=== PATIENT | male | born 1930 | race Caucasian/White ===

== ENCOUNTER 2018-05-16 17:06 | Inpatient (IN) | payer MEDICARE, OTHER ==
[~2018-05-16] VITALS: Ht 160 cm; Wt 58.5 kg
[~2018-05-16 17:06] MED LIST: AMOX1TAB64 PO; CEFD300C37 PO; CLIN300C8 PO; COUMADIN PO; DIGO125T81 PO; DOXY100T PO; DULO60CA7 PO; FINA5TAB4 PO; FURO-93 PO; FURO20TA3 PO; GABA600T PO; LEVO50TA5 PO; LISI-167 PO; METH4TAB2 PO; METH500T97 PO; METO50TA82 PO; METOPROLOL PO; PANT40TA5 PO; POTA10TA11 PO; POTA10TA31 PO; PRED20TA PO; SULF1TAB24; TAMS-11 PO; [UNRECOGNIZED DRUG - CODE]
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
[2018-05-16] MEDS ORDERED: HYDROmorphone 1 MG/ML, 1ML ONE (17:26)
[2018-05-16] MEDS ORDERED: HYDROmorphone 1 MG/ML, 1ML IVPush PRN (17:30)
[2018-05-16] MEDS ORDERED: SODIUM CHLORIDE FLUSH 10ML SYR IVF ONE (17:30)
--- NOTE | 2018-05-16 17:30 | NUR ---
pt to XR
[2018-05-16] MEDS ORDERED: ASPI-496 PO (17:44)
[2018-05-16] MEDS ORDERED: ACET325T14 PO (17:44)
[2018-05-16] MEDS ORDERED: SPIR25TA5 PO (17:44)
[2018-05-16] MEDS ORDERED: LEVO100T5 PO (17:44)
[2018-05-16] MEDS ORDERED: OMEP20TA62 PO (17:44)
[2018-05-16] MEDS ORDERED: CHOL200024 PO (17:44)
--- NOTE | 2018-05-16 17:48 | NUR ---
pt returned from XR
--- NOTE | 2018-05-16 18:02 | NUR ---
pt laying on gurney awake & more comfortable after pain med, COMANCHE but responds approp to staff, NAD, family at BS, comfort measures provided, call light within reach.
[2018-05-16 18:16] LABS: INTERNATIONAL NORMALIZED RATIO 1.07 (0.93-1.1); PROTHROMBIN TIME 11.3 Seconds (9.6-11.5)
[2018-05-16 18:19] LABS: ALANINE AMINOTRANSFERASE 18 U/L (12-78); ALBUMIN 3.7 g/dL (3.4-5.0); ANION GAP 5 mmol/L (5-15); CALCIUM 8.9 mg/dL (8.5-10.1); CHLORIDE 102 mmol/L (98-107)
[2018-05-16 18:22] LABS: ALKALINE PHOSPHATASE 84 U/L (45-117); BILIRUBIN,TOTAL 0.8 mg/dL (0.2-1.0); CREATININE 1.02 mg/dL (0.7-1.3); TOTAL PROTEIN 7.1 g/dL (6.4-8.2)
[2018-05-16 18:24] LABS: MEAN CORPUSCULAR HEMOGLOBIN 35.5 pg (27.5-34.5); MEAN CORPUSCULAR HGB CONC 33.1 g/dL (33.2-36.2); MEAN CORPUSCULAR VOLUME 107.3 fL (81-97); MEAN PLATELET VOLUME 9.9 fL (7.4-10.4); PLATELET COUNT 129 x10^3/uL (130-400); RED BLOOD COUNT 3.69 x10^6/uL (4.38-5.82); RED CELL DISTRIBUTION WIDTH 13.8 % (9.4-14.8)
[2018-05-16 18:25] LABS: BASOPHILS # (AUTO) 0.02 x10^3/uL (0-0.1); BASOPHILS % (AUTO) 0 % (0-1); EOSINOPHILS # (AUTO) 0.11 x10^3/uL (0-0.4); EOSINOPHILS % (AUTO) 2 % (1-7); LYMPHOCYTES # (AUTO) 1.45 x10^3/uL (1-3.4); LYMPHOCYTES % (AUTO) 18 % (22-44); MONOCYTES # (AUTO) 0.71 x10^3/uL (0.2-0.8); MONOCYTES % (AUTO) 9 % (2-9); NEUTROPHILS # (AUTO) 5.63 x10^3/uL (1.8-6.8); NEUTROPHILS % (AUTO) 71 % (42-75)
[2018-05-16 18:26] LABS: MD MORPH REVIEW ONLY
[2018-05-16 18:28] LABS: <PLATELET ESTIMATE> DECREASED; LARGE PLATELETS 1+
--- NOTE | 2018-05-16 18:59 | NUR ---
Pt to be admitted to med-surg, room 474. Report called to Patrizia Porter.
[2018-05-16 19:23] VITALS: BP 131/84
[2018-05-16] MEDS ORDERED: ONDANSETRON 2MG/ML, 2ML IVPush PRN (19:30)
[2018-05-16] MEDS ORDERED: BISACODYL 10 MG SUPP PR PRN (19:30)
[2018-05-16] MEDS ORDERED: HYDROmorphone 2 MG/ML, 1ML IVPush PRN (19:30)
[2018-05-16] MEDS ORDERED: POLYETHYLENE GLYCOL 17 GM PACKET PO PRN (19:30)
[2018-05-16] MEDS: LEVOTHYROXINE 100 MCG TABLET PO SCH (19:30)
[2018-05-16] MEDS ORDERED: METHOCARBAMOL 500 MG TABLET PO PRN (19:30)
[2018-05-16] MEDS ORDERED: ACETAMINOPHEN 325 MG TABLET PO PRN (19:30)
[2018-05-16] MEDS: DULOXETINE 30 MG CAPSULE.DR PO SCH (20:45)
[2018-05-16] MEDS: METHOCARBAMOL 500 MG TABLET PO SCH (20:45)
[2018-05-16] MEDS: AMPICILLIN/SULBACTAM 3 GM in SODIUM CHLORIDE 0.9% 100 ML IV SCH (20:45)
[2018-05-16] MEDS: GABAPENTIN 400 MG CAPSULE PO SCH (20:45)
[2018-05-16] MEDS: SODIUM CHLORIDE FLUSH 10ML SYR IVF SCH (20:46)
[2018-05-17 01:01] VITALS: BP 106/65
[2018-05-17] MEDS: AMPICILLIN/SULBACTAM 3 GM in SODIUM CHLORIDE 0.9% 100 ML IV SCH ×4 (01:30→20:30)
[2018-05-17 06:00] LABS: BASOPHILS # (AUTO) 0.08 x10^3/uL (0-0.1); BASOPHILS % (AUTO) 1 % (0-1); EOSINOPHILS % (AUTO) 0 % (1-7); LYMPHOCYTES # (AUTO) 0.94 x10^3/uL (1-3.4); LYMPHOCYTES % (AUTO) 9 % (22-44); MD NO; MEAN CORPUSCULAR HEMOGLOBIN 35.7 pg (27.5-34.5); MEAN CORPUSCULAR HGB CONC 33.8 g/dL (33.2-36.2); MEAN CORPUSCULAR VOLUME 105.5 fL (81-97); MEAN PLATELET VOLUME 10.1 fL (7.4-10.4); MONOCYTES # (AUTO) 0.95 x10^3/uL (0.2-0.8); MONOCYTES % (AUTO) 10 % (2-9); NEUTROPHILS # (AUTO) 8.05 x10^3/uL (1.8-6.8); NEUTROPHILS % (AUTO) 80 % (42-75); PLATELET COUNT 124 x10^3/uL (130-400); RED BLOOD COUNT 3.74 x10^6/uL (4.38-5.82); RED CELL DISTRIBUTION WIDTH 13.9 % (9.4-14.8)
[2018-05-17 06:13] LABS: CALCIUM 8.8 mg/dL (8.5-10.1); CHLORIDE 106 mmol/L (98-107)
[2018-05-17 06:19] LABS: ALANINE AMINOTRANSFERASE 15 U/L (12-78); ALBUMIN 3.6 g/dL (3.4-5.0); ALKALINE PHOSPHATASE 72 U/L (45-117); ANION GAP 7 mmol/L (5-15); BILIRUBIN,TOTAL 1.5 mg/dL (0.2-1.0); CREATININE 0.97 mg/dL (0.7-1.3)
[2018-05-17 07:29] VITALS: BP 100/65
[2018-05-17] MEDS: LEVOTHYROXINE 50 MCG TABLET PO SCH (07:30)
[2018-05-17] MEDS ORDERED: LEVOTHYROXINE 100 MCG TABLET ONE (07:59)
[2018-05-17] MEDS: POTASSIUM CHLORIDE 10 MEQ TABLET.ER PO SCH (09:00)
[2018-05-17] MEDS: SENNA/DOCUSATE TABLET PO SCH (09:00)
[2018-05-17] MEDS: FINASTERIDE 5 MG TABLET PO SCH (09:00)
[2018-05-17] MEDS: TAMSULOSIN 0.4 MG CAP.ER.24H PO SCH (09:00)
[2018-05-17] MEDS: METHOCARBAMOL 500 MG TABLET PO SCH ×2 (09:00→20:30)
[2018-05-17] MEDS ORDERED: SPIRONOLACTONE 25 MG TABLET PO SCH (09:00)
[2018-05-17] MEDS: CHOLECALCIFEROL 1,000 UNIT TABLET PO SCH (09:00)
[2018-05-17] MEDS: OMEPRAZOLE 20 MG CAPSULE.DR PO SCH (09:00)
[2018-05-17] MEDS: GABAPENTIN 400 MG CAPSULE PO SCH ×2 (09:00→20:30)
[2018-05-17] MEDS ORDERED: FUROSEMIDE 40 MG TABLET PO SCH (09:00)
[2018-05-17] MEDS: METOPROLOL TARTRATE 50 MG TABLET PO SCH (09:21)
[2018-05-17] MEDS: SODIUM CHLORIDE FLUSH 10ML SYR IVF SCH ×2 (09:22→20:30)
[2018-05-17] MEDS: ACETAMINOPHEN 500 MG TABLET PO SCH ×3 (10:26→22:30)
[2018-05-17] MEDS: ENOXAPARIN 40 MG/0.4 ML SQ SCH (15:01)
[2018-05-17 15:15] VITALS: BP 111/72
--- NOTE | 2018-05-17 16:43 | NUR ---
REC: Patient is not safe for po intake due to extremely high risk of aspiration; however, artificial means are not an option. Therefore, recommend pureed diet with NTL as most conservative method of po to reduce risk of aspiration. Addendum: 05/17/18 at 1655 by Marielle CONWAY Amended: Links added.
[2018-05-17 19:38] VITALS: BP 111/68
[2018-05-17] MEDS: DULOXETINE 30 MG CAPSULE.DR PO SCH (20:30)
[2018-05-18 00:32] VITALS: BP 117/80
[2018-05-18] MEDS: AMPICILLIN/SULBACTAM 3 GM in SODIUM CHLORIDE 0.9% 100 ML IV SCH ×4 (01:41→20:16)
[2018-05-18] MEDS: ACETAMINOPHEN 500 MG TABLET PO SCH ×5 (04:30→20:19)
[2018-05-18 05:33] LABS: ALBUMIN 3.1 g/dL (3.4-5.0); ANION GAP 8 mmol/L (5-15); CHLORIDE 106 mmol/L (98-107); MEAN CORPUSCULAR HEMOGLOBIN 35.4 pg (27.5-34.5); MEAN CORPUSCULAR HGB CONC 33.5 g/dL (33.2-36.2); MEAN CORPUSCULAR VOLUME 105.6 fL (81-97); RED BLOOD COUNT 3.67 x10^6/uL (4.38-5.82); RED CELL DISTRIBUTION WIDTH 13.6 % (9.4-14.8)
[2018-05-18 05:36] LABS: ALANINE AMINOTRANSFERASE 15 U/L (12-78); ALKALINE PHOSPHATASE 68 U/L (45-117); CREATININE 1.15 mg/dL (0.7-1.3); TOTAL PROTEIN 6.5 g/dL (6.4-8.2)
[2018-05-18 06:18] LABS: BASOPHILS # (AUTO) 0.02 x10^3/uL (0-0.1); BASOPHILS % (AUTO) 0 % (0-1); EOSINOPHILS % (AUTO) 0 % (1-7); LYMPHOCYTES # (AUTO) 0.86 x10^3/uL (1-3.4); LYMPHOCYTES % (AUTO) 7 % (22-44); MD SCAN; MEAN PLATELET VOLUME 10.4 fL (7.4-10.4); MONOCYTES # (AUTO) 0.64 x10^3/uL (0.2-0.8); MONOCYTES % (AUTO) 5 % (2-9); NEUTROPHILS # (AUTO) 10.84 x10^3/uL (1.8-6.8); NEUTROPHILS % (AUTO) 88 % (42-75); PLATELET COUNT 100 x10^3/uL (130-400)
[2018-05-18] MEDS ORDERED: LEVOTHYROXINE 25 MCG TABLET ONE (06:34)
[2018-05-18 07:05] VITALS: BP 99/63
[2018-05-18] MEDS: LEVOTHYROXINE 100 MCG TABLET PO SCH (08:22)
[2018-05-18] MEDS: FUROSEMIDE 20 MG TABLET PO SCH (08:23)
[2018-05-18] MEDS: METOPROLOL TARTRATE 50 MG TABLET PO SCH (08:24)
[2018-05-18] MEDS: FINASTERIDE 5 MG TABLET PO SCH (08:27)
[2018-05-18] MEDS: POTASSIUM CHLORIDE 10 MEQ TABLET.ER PO SCH (08:31)
[2018-05-18] MEDS: CHOLECALCIFEROL 1,000 UNIT TABLET PO SCH (08:33)
[2018-05-18] MEDS: SODIUM CHLORIDE FLUSH 10ML SYR IVF SCH ×2 (08:33→20:18)
[2018-05-18] MEDS: TAMSULOSIN 0.4 MG CAP.ER.24H PO SCH (08:34)
[2018-05-18] MEDS: GABAPENTIN 400 MG CAPSULE PO SCH ×2 (08:34→20:17)
[2018-05-18] MEDS: SENNA/DOCUSATE TABLET PO SCH (08:37)
[2018-05-18] MEDS: OMEPRAZOLE 20 MG CAPSULE.DR PO SCH (08:37)
[2018-05-18] MEDS: METHOCARBAMOL 500 MG TABLET PO SCH ×2 (08:37→20:17)
[2018-05-18 14:11] VITALS: BP 92/58
[2018-05-18] MEDS: ENOXAPARIN 40 MG/0.4 ML SQ SCH (15:36)
[2018-05-18 19:22] VITALS: BP 104/63
[2018-05-18] MEDS: METOPROLOL TARTRATE 25 MG TABLET PO SCH (20:17)
[2018-05-18] MEDS: DULOXETINE 30 MG CAPSULE.DR PO SCH (20:17)
[2018-05-18] MEDS: OXYcodone IR 5MG TABLET PO PRN (23:14)
[2018-05-19 01:12] VITALS: BP 107/70
[2018-05-19] MEDS: AMPICILLIN/SULBACTAM 3 GM in SODIUM CHLORIDE 0.9% 100 ML IV SCH ×3 (03:13→14:51)
[2018-05-19] MEDS: ACETAMINOPHEN 500 MG TABLET PO SCH ×4 (03:13→21:08)
[2018-05-19 05:50] LABS: ALANINE AMINOTRANSFERASE 12 U/L (12-78); ALBUMIN 2.5 g/dL (3.4-5.0); ANION GAP 6 mmol/L (5-15); CALCIUM 8.5 mg/dL (8.5-10.1); CHLORIDE 108 mmol/L (98-107); MEAN CORPUSCULAR HEMOGLOBIN 36.1 pg (27.5-34.5); MEAN CORPUSCULAR VOLUME 106.2 fL (81-97); RED BLOOD COUNT 3.17 x10^6/uL (4.38-5.82); RED CELL DISTRIBUTION WIDTH 13.6 % (9.4-14.8)
[2018-05-19 05:53] LABS: ALKALINE PHOSPHATASE 60 U/L (45-117); BILIRUBIN,TOTAL 1.4 mg/dL (0.2-1.0); CREATININE 0.86 mg/dL (0.7-1.3); TOTAL PROTEIN 5.7 g/dL (6.4-8.2)
[2018-05-19] MEDS ORDERED: LEVOTHYROXINE 25 MCG TABLET ONE ×2 (05:58→06:12)
[2018-05-19] MEDS: OXYcodone IR 5MG TABLET PO PRN (06:10)
[2018-05-19 06:21] LABS: MD SCAN
[2018-05-19] MEDS: LEVOTHYROXINE 100 MCG TABLET PO SCH (06:53)
[2018-05-19 07:32] VITALS: BP 101/71
[2018-05-19] MEDS: METHOCARBAMOL 500 MG TABLET PO SCH ×2 (08:41→21:08)
[2018-05-19] MEDS: FINASTERIDE 5 MG TABLET PO SCH (08:42)
[2018-05-19] MEDS: TAMSULOSIN 0.4 MG CAP.ER.24H PO SCH (08:44)
[2018-05-19] MEDS: GABAPENTIN 400 MG CAPSULE PO SCH ×2 (08:44→21:08)
[2018-05-19] MEDS: METOPROLOL TARTRATE 25 MG TABLET PO SCH ×2 (08:44→20:56)
[2018-05-19] MEDS: FUROSEMIDE 20 MG TABLET PO SCH (08:44)
[2018-05-19] MEDS: POTASSIUM CHLORIDE 10 MEQ TABLET.ER PO SCH (08:46)
[2018-05-19] MEDS: OMEPRAZOLE 20 MG CAPSULE.DR PO SCH (08:46)
[2018-05-19] MEDS: SENNA/DOCUSATE TABLET PO SCH ×2 (08:47→08:59)
[2018-05-19] MEDS: SODIUM CHLORIDE FLUSH 10ML SYR IVF SCH ×2 (08:47→21:13)
[2018-05-19] MEDS: CHOLECALCIFEROL 1,000 UNIT TABLET PO SCH ×2 (08:47→08:59)
[2018-05-19 10:43] LABS: LYMPHOCYTES % (AUTO) 10 % (22-44); MEAN PLATELET VOLUME 10.7 fL (7.4-10.4); NEUTROPHILS % (AUTO) 81 % (42-75); PLATELET COUNT 82 x10^3/uL (130-400)
[2018-05-19 10:44] LABS: BASOPHILS # (AUTO) 0.02 x10^3/uL (0-0.1); BASOPHILS % (AUTO) 0 % (0-1); EOSINOPHILS % (AUTO) 1 % (1-7); LYMPHOCYTES # (AUTO) 0.77 x10^3/uL (1-3.4); MONOCYTES # (AUTO) 0.61 x10^3/uL (0.2-0.8); MONOCYTES % (AUTO) 8 % (2-9); NEUTROPHILS # (AUTO) 6.37 x10^3/uL (1.8-6.8)
[2018-05-19 11:24] LABS: ABSOLUTE RETICS # 0.018 x10^6/uL (0.5-1.5); RED BLOOD COUNT 3.23 x10^6/uL (4.38-5.82); RETICULOCYTE COUNT % 0.56 % (0.5-1.5)
[2018-05-19] MEDS ORDERED: BISACODYL 10 MG SUPP PR ONE (11:30)
[2018-05-19] MEDS ORDERED: LACTULOSE 20 GM/30 ML UDC PO ONE (12:00)
[2018-05-19 13:21] VITALS: BP 101/69
[2018-05-19] MEDS: ENOXAPARIN 40 MG/0.4 ML SQ SCH (14:53)
[2018-05-19 19:23] VITALS: BP 103/67
[2018-05-19] MEDS: DULOXETINE 30 MG CAPSULE.DR PO SCH (21:08)
[2018-05-20] MEDS: ACETAMINOPHEN 500 MG TABLET PO SCH ×4 (02:15→22:35)
[2018-05-20 02:36] VITALS: BP 120/73
[2018-05-20] MEDS: OXYcodone IR 5MG TABLET PO PRN (05:07)
[2018-05-20] MEDS: LEVOTHYROXINE 50 MCG TABLET PO SCH (07:48)
[2018-05-20 08:03] VITALS: BP 113/71
[2018-05-20] MEDS: SODIUM CHLORIDE FLUSH 10ML SYR IVF SCH ×2 (09:00→21:00)
[2018-05-20] MEDS: METHOCARBAMOL 500 MG TABLET PO SCH ×2 (09:43→22:34)
[2018-05-20] MEDS: GABAPENTIN 400 MG CAPSULE PO SCH ×2 (09:43→22:34)
[2018-05-20] MEDS: FINASTERIDE 5 MG TABLET PO SCH (09:43)
[2018-05-20] MEDS: FUROSEMIDE 20 MG TABLET PO SCH (09:43)
[2018-05-20] MEDS: POLYETHYLENE GLYCOL 17 GM PACKET PO SCH (09:43)
[2018-05-20] MEDS: METOPROLOL TARTRATE 25 MG TABLET PO SCH ×2 (09:43→21:00)
[2018-05-20] MEDS: TAMSULOSIN 0.4 MG CAP.ER.24H PO SCH (09:43)
[2018-05-20] MEDS: SENNA/DOCUSATE TABLET PO SCH (09:44)
[2018-05-20] MEDS: OMEPRAZOLE 20 MG CAPSULE.DR PO SCH (09:44)
[2018-05-20] MEDS: CHOLECALCIFEROL 1,000 UNIT TABLET PO SCH (09:44)
[2018-05-20] MEDS: POTASSIUM CHLORIDE 10 MEQ TABLET.ER PO SCH (09:44)
[2018-05-20 14:25] VITALS: BP 118/80
[2018-05-20] MEDS: ENOXAPARIN 40 MG/0.4 ML SQ SCH (15:23)
[2018-05-20 19:01] VITALS: BP 102/64
[2018-05-20] MEDS: DULOXETINE 30 MG CAPSULE.DR PO SCH (22:34)
[2018-05-21 01:27] VITALS: BP 110/59
[2018-05-21] MEDS: LEVOTHYROXINE 50 MCG TABLET PO SCH (06:31)
[2018-05-21] MEDS: ACETAMINOPHEN 500 MG TABLET PO SCH ×2 (06:31→12:51)
[2018-05-21] MEDS: SODIUM CHLORIDE FLUSH 10ML SYR IVF SCH (09:00)
[2018-05-21] MEDS: METOPROLOL TARTRATE 25 MG TABLET PO SCH (09:00)
[2018-05-21] MEDS: POTASSIUM CHLORIDE 10 MEQ TABLET.ER PO SCH (09:00)
[2018-05-21] MEDS: POLYETHYLENE GLYCOL 17 GM PACKET PO SCH (09:00)
[2018-05-21] MEDS: SENNA/DOCUSATE TABLET PO SCH (09:00)
[2018-05-21] MEDS: GABAPENTIN 400 MG CAPSULE PO SCH (09:12)
[2018-05-21] MEDS: FINASTERIDE 5 MG TABLET PO SCH (09:13)
[2018-05-21] MEDS: OMEPRAZOLE 20 MG CAPSULE.DR PO SCH (09:13)
[2018-05-21] MEDS: TAMSULOSIN 0.4 MG CAP.ER.24H PO SCH (09:13)
[2018-05-21] MEDS: FUROSEMIDE 20 MG TABLET PO SCH (09:13)
[2018-05-21] MEDS: METHOCARBAMOL 500 MG TABLET PO SCH (09:13)
[2018-05-21] MEDS: CHOLECALCIFEROL 1,000 UNIT TABLET PO SCH (09:14)
[2018-05-21 09:19] VITALS: BP 109/74
[2018-05-21] MEDS ORDERED: FURO20TA3 PO (09:57)
[2018-05-21] MEDS ORDERED: TRAM50TA2 PO (10:02)
[2018-05-21 14:40] VITALS: BP 95/58
== END 2018-05-21 17:10 | disposition hospice, home (50) | DRG 177 ==
LOC: EDIP 18:30 → ED 18:36 → 4NOR 19:15
PROVIDERS: ADMIT Hospitalist; ATTEND Hospitalist
DX: J69.0 Pneumonitis due to inhalation of food and vomit (principal); S72.002A Fracture of unspecified part of neck of left femur, initial encounter for closed fracture; I50.42 Chronic combined systolic (congestive) and diastolic (congestive) heart failure; J96.10 Chronic respiratory failure, unspecified whether with hypoxia or hypercapnia; Z88.8 Allergy status to other drugs, medicaments and biological substances; D50.9 Iron deficiency anemia, unspecified; D53.9 Nutritional anemia, unspecified; D69.6 Thrombocytopenia, unspecified; E03.9 Hypothyroidism, unspecified; F03.90 Unspecified dementia, unspecified severity, without behavioral disturbance, psychotic disturbance, mood disturbance, and anxiety; I11.0 Hypertensive heart disease with heart failure; I48.91 Unspecified atrial fibrillation; J44.9 Chronic obstructive pulmonary disease, unspecified; K21.9 Gastro-esophageal reflux disease without esophagitis; M06.9 Rheumatoid arthritis, unspecified; M19.90 Unspecified osteoarthritis, unspecified site; M41.9 Scoliosis, unspecified; M79.7 Fibromyalgia; M81.0 Age-related osteoporosis without current pathological fracture; N40.0 Benign prostatic hyperplasia without lower urinary tract symptoms; R13.10 Dysphagia, unspecified; Z51.5 Encounter for palliative care; Z66 Do not resuscitate; Z85.828 Personal history of other malignant neoplasm of skin; Z99.81 Dependence on supplemental oxygen; W18.39XA Other fall on same level, initial encounter; Y93.89 Activity, other specified; Y92.89 Other specified places as the place of occurrence of the external cause; Y99.8 Other external cause status
CPT/HCPCS: 36415; 71045; 80053; 82728; 83540; 83550; 84466; 85025; 85045; 85610; 86850; 86900; 87070; 87205; 93005; 96374; 99285; G0378; J0295; J1170; J1650